=== PATIENT | male | born 1965 | race Two or more races ===

== ENCOUNTER 2020-10-15 10:24 | Outpatient (CLI) | payer OTHER | END 2020-10-15 10:31 | disposition home or self-care (01) | LOC: RAD 10:24 | PROVIDERS: ATTEND Orthopaedic Surgery | DX: S62.324A Displaced fracture of shaft of fourth metacarpal bone, right hand, initial encounter for closed fracture (principal) ==

== ENCOUNTER 2020-10-28 10:28 | Outpatient (CLI) | payer OTHER | END 2020-10-28 10:39 | disposition HB | LOC: RAD 10:28 | PROVIDERS: ATTEND Orthopaedic Surgery | DX: S62.324D Displaced fracture of shaft of fourth metacarpal bone, right hand, subsequent encounter for fracture with routine healing (principal) ==